=== PATIENT | female | born 1985 | race Caucasian/White ===

== ENCOUNTER 2022-10-23 18:01 | Emergency (ER) | payer MEDICAID, SELFPAY ==
[2022-10-23 18:09] VITALS: BP 118/78; PULSE 110; RESP 20; TEMP 37.2; O2SAT 99
--- NOTE | 2022-10-23 18:15 | DI.RAD_ITS ---
Exam(s) XR SHOULDER LT COMPLETE 2+V EXAM: XR SHOULDER LT COMPLETE 2+V CLINICAL HISTORY: Trauma. TECHNIQUE: 2D digital imaging was performed. Three views. COMPARISON: No exams were available for comparison FINDINGS: BONES: Fracture of the midclavicle with inferior angulation. No additional fractures seen. Scoliosi s noted in the thoracic spine. No bony destructive lesion is seen. JOINTS: No dislocation present. SOFT TISSUE: Normal. No pneumothorax. IMPRESSION: Clavicle fracture. DATA REPOSITORY: RADIATION DOSE DELIVERED:
--- NOTE | 2022-10-23 18:15 | DI.RAD_ITS ---
Exam(s) XR CHEST 2V PA LATERAL EXAM: XR CHEST 2V PA LATERAL CLINICAL HISTORY: Trauma TECHNIQUE: 2D digital imaging was performed. COMPARISON: No exams were available for comparison FINDINGS: HEART: Normal size. Aorta: Not dilated. PULMONARY VASCULATURE: Normal. LUNGS: Clear. PLEURAL SPACE: No pleural effusion or pneumothorax. BONE:Unremarkable for age. IMPRESSION: No acute abnormality. DATA REPOSITORY: RADIATION DOSE DELIVERED:
--- NOTE | 2022-10-23 19:09 | DI.VRAD_ITS ---
PROCEDURE INFORMATION: Exam: XR Left Shoulder Exam date and time: 10/23/2022 6:35 PM Age: 36 years old Clinical indication: Other: Fall, trauma TECHNIQUE: Imaging protocol: Radiologic exam of the left shoulder. Views: 2 or more views. COMPARISON: CR XR CHEST 2V PA LATERAL 10/23/2022 6:33 PM FINDINGS: Bones/joints: Moderately angulated left mid clavicle fracture. No other acute fracture. Acromioclavicular and glenohumeral joints are normally aligned. Soft tissues: Normal. IMPRESSION: Moderately angulated left clavicle fracture Dictated and Authenticated by: Brayan Chang MD. Ordering:CHHAYA Moreland MD
--- NOTE | 2022-10-23 19:09 | DI.VRAD_ITS ---
PROCEDURE INFORMATION: Exam: XR Chest Exam date and time: 10/23/2022 6:33 PM Age: 36 years old Clinical indication: Other: Fall, trauma TECHNIQUE: Imaging protocol: Radiologic exam of the chest. Views: 2 views. COMPARISON: No relevant prior studies available. FINDINGS: Lungs: Unremarkable. No consolidation. Pleural spaces: Unremarkable. No pleural effusion. No pneumothorax. Heart/Mediastinum: Unremarkable. No cardiomegaly. Bones/joints: Partially visualized thoracolumbar scoliosis. Bones are otherwise unremarkable. IMPRESSION: No acute disease Dictated and Authenticated by: Brayan Chang MD. Ordering:CHHAYA Moreland MD
[2022-10-23] MEDS: Ibuprofen 600 MG TAB PO (19:46)
--- NOTE | 2022-10-23 20:36 | W.ED.GENAD ---
Discharge Plan Disposition Patient Disposition: Home Condition: Stable Discharge Details Clinical Impression: Closed fracture of left clavicle, Closed head injury Primary Care Provider: None,None ED Provider: Merly Knowles Home Meds and New Rx's Prescriptions: New cyclobenzaprine 10 mg tablet 10 mg PO TID PRN (Reason: muscle spasm) Qty: 10 0RF Rx Instructions: Take 1 tablet by mouth 3 times daily as needed for muscle spasm. No Action Vyvanse 70 mg Capsule 70 mg PO DAILY buprenorphine-naloxone [Suboxone] 12-3 mg Film 1 film sublingual Discharge Instructions Instructions: Clavicle Fracture (ED), Head Injury (ED) Additional Instructions: Please follow-up with orthopedics in the next couple of weeks. Keep the sling on. Advance activity as tolerated. Take the muscle relaxer as directed. This may cause sleepiness. Please take Tylenol or Ibuprofen with food every 4-6 hours as needed for pain and swelling. Follow up with primary care provider in 3-5 days. Return to ED sooner if any worsening vomiting, headache not relieved by Tylenol or ibuprofen, blood in vomit or stool or concerns. Increase oral fluids. Referrals: Moris Schmitz PA [[facility]] - 2 weeks Nate Cassidy MD [ [facility] STAFF PHYSICIAN] - 2 weeks Medical Decision Making 36-year-old female presents to the ER with chief complaint of left shoulder pain after falling off the back of a truck. She was lifting some kayaks out of the truck and fell backwards hitting the back of her head. No loss of consciousness. She does report she got the wind knocked out of her. She presents alert awake and oriented speaking in full sentences. No difficulty breathing. Vital signs are stable. She does have small deformity to her left clavicle. Distal CMS is intact. No midline C-spine T-spine or L-spine tenderness. She did take Tylenol prior to arrival. She is on Suboxone she does have a history of a tubal ligation. Trauma exam performed no other significant injuries or signs of trauma. X-ray left shoulder and chest x-ray ordered. This showed a left clavicle fracture no acute cardiopulmonary abnormality no pneumothorax no rib fractures. Please see report. Patient was given sling, Flexeril, lidocaine patch and referral for orthopedics for follow-up. Discussed home care she verbalized understanding. This text was generated using [employer] system, please disregard any oddities of phrase or misspellings. Imaging Data Radiologic Study: Imaging: X-Ray Radiologist's impression: CR XR CHEST 2V PA LATERAL 10/23/2022 6:33 PM FINDINGS: Bones/joints: Moderately angulated left mid clavicle fracture. No other acute fracture. Acromioclavicular and glenohumeral joints are normally aligned. Soft tissues: Normal. IMPRESSION: Moderately angulated left clavicle fracture Thank you for allowing us to participate in the care of your patient. Dictated and Authenticated by: Brayan Chang MD Radiologic Study #2: Imaging: X-Ray Radiologist's impression: Views: 2 views. COMPARISON: No relevant prior studies available. FINDINGS: Lungs: Unremarkable. No consolidation. Pleural spaces: Unremarkable. No pleural effusion. No pneumothorax. Heart/Mediastinum: Unremarkable. No cardiomegaly. Bones/joints: Partially visualized thoracolumbar scoliosis. Bones are otherwise unremarkable. IMPRESSION: No acute disease Thank you for allowing us to participate in the care of your patient. Dictated and Authenticated by: Brayan Chang MD [facility] General Mode of arrival: ambulatory. Date/Time Provider Initiated Documentation: 10/23/22 18:19. Limitations to Documentation: no limitations. Information obtained by: patient, RN notes reviewed and old records reviewed. HPI Narrative: 36-year-old female presents to the ER with chief complaint of left shoulder pain after falling off the back of a truck. She was lifting some kayaks out of the truck and fell backwards hitting the back of her head. No loss of consciousness. She does report she got the wind knocked out of her. She presents alert awake and oriented speaking in full sentences. No difficulty breathing. Vital signs are stable. She does have small deformity to her left clavicle. Distal CMS is intact. No midline C-spine T-spine or L-spine tenderness. She did take Tylenol prior to arrival. She is on Suboxone she does have a history of a tubal ligation. Related Data Home Medications Medication Instructions Recorded Confirmed buprenorphine 12 mg-naloxone 3 mg 1 film sublingual 10/23/22 sublingual film (Suboxone) cyclobenzaprine 10 mg tablet 10 mg PO TID PRN muscle spasm #10 10/23/22 tabs lisdexamfetamine 70 mg capsule 70 mg PO DAILY 10/23/22 10/23/22 (Vyvanse) Previous Rx's Medication Instructions Recorded cyclobenzaprine 10 mg tablet 10 mg PO TID PRN muscle spasm #10 10/23/22 tabs Allergies Allergy/AdvReac Type Severity Reaction Status Date / Time No Known Allergies Allergy Unverified 10/23/22 18:57 General Stated Complaint: Orthopedic BILLIE: 3 Review of Systems All systems reviewed & are unremarkable except as noted in HPI and below Musculoskeletal Musculoskeletal: Reports as per HPI, Reports deformity, Reports arthralgias, Reports joint swelling and Reports stiffness Neurologic Neurologic: Reports as per HPI, Denies behavioral changes and Denies confusion Psychiatric Psychiatric: Denies behavioral changes and Denies confusion FORMERLY [facility], [facility]–1983 All Active Problems (Updated 10/23/22 @ 21:02 by Merly Knowles NP) Closed fracture of left clavicle (Acute) Closed head injury (Acute) Surgical History History of tubal ligation Social History Smoking/Tobacco Use Status: Current every day Smoking risk assessment performed?: Yes Alcohol Intake: never Drug use: Current Sobriety Details: on suboxone Housing: house Do you feel safe at home: Yes Do you feel safe in your relationship?: Yes Exam Narrative Exam Narrative: General: Well Developed, Awake and Alert, conversant. Skin: Warm and Dry HEENT: Head: No palpable deformities, Normocephalic Eyes: Pupils PERRLA, EOM's intact. No periorbital eccymosis or step off. No raccoons eyes no lino sign. Ears: Canal patent. Tympanic membranes are clear . No lino's sign, no hemptympanum. She does have a a small laceration to the pinna of her right ear approximately 2 cm in length bleeding is controlled. Nose/Face: Atraumatic. Facial bones nontender to palpation and stable with manipulation. Mouth/Throat: No intraoral trauma. Teeth and mandible are intact. Neck: No midline tenderness, no step off, no deformity to palpation of C-spine. Trachea midline. Chest: No surface trauma. Nontender without crepitus or deformity. Lungs clear to ausculatation bilaterally. Does have a left clavicle deformity and tenderness with palpation. No tenting of the skin. Heart: RRR, no rubs, murmurs or gallop. Abdomen: No abrasions, ecchymosis, or surface trauma. Nondistended. Nontender to palpation no guarding, rebound, or rigidity. Pelvis: Nontender to palpation and stable to compression. Femoral pulses strong and equal Extremities: no surface trauma. Sensation intact. Peripheral pulses intact and equal. Neuro: ANO x4, GCS 15, cranial nerves II through XII intact. Motor and sensory exam nonfocal. Reflexes are symmetric. Course Vital Signs Vital signs: Vital Signs Temperature 37.2 C 10/23/22 18:09 Pulse 110 H 10/23/22 18:09 Respiratory Rate 20 10/23/22 18:09 Blood Pressure 118/78 10/23/22 18:09 Pulse Oximetry 99 10/23/22 18:09 Temperature 37.2 C 10/23/22 18:09 Temperature Source Oral 10/23/22 18:09 Pulse 110 H 10/23/22 18:09 Respiratory Rate 20 10/23/22 18:09 Respiratory Effort Normal, Non-Labored 10/23/22 18:16 Blood Pressure 118/78 10/23/22 18:09 Blood Pressure Position Sitting 10/23/22 18:09 Pulse Oximetry 99 10/23/22 18:09 Oxygen Delivery Method Room Air 10/23/22 18:09 Oxygen Flow Rate 0 10/23/22 18:09
[2022-10-23] MEDS: Cyclobenzaprine 10 MG TAB PO (20:53)
[2022-10-23] MEDS: Lidocaine 5% Patch 1 PATCH TP (20:54)
[2022-10-23] MEDS: Cyclobenzaprine 10 MG TAB, 3 TABS/BTL PO (20:56)
[2022-10-23 21:10] VITALS: BP 129/83; PULSE 85; RESP 19; TEMP 36.5; O2SAT 99
== END 2022-10-23 21:19 | disposition home or self-care (01) ==
PROVIDERS: Emergency Provider Registered Nurse Emergency
DX: S09.90XA Unspecified injury of head, initial encounter (principal); S42.025A Nondisplaced fracture of shaft of left clavicle, initial encounter for closed fracture; W17.89XA Other fall from one level to another, initial encounter; F17.200 Nicotine dependence, unspecified, uncomplicated
CPT/HCPCS: 99283; 71046; 73030

== ENCOUNTER 2022-11-09 09:27 | Outpatient (CLI) | payer MEDICAID, SELFPAY ==
--- NOTE | 2022-11-09 08:45 | DI.RAD_ITS ---
Exam(s) XR CLAVICLE LT EXAM: XR CLAVICLE LT CLINICAL HISTORY: LEFT CLAVICLE F/U. TECHNIQUE: 2D digital imaging was performed. COMPARISON: CR,XR XR SHOULDER LT COMPLETE 2+V from 10/23/2022 FINDINGS: Two views: Previously described slightly angulated midshaft fracture of the left clavicle is again noted, exhibi ting minimal if any significant change from 10/23/2022. There is no distraction of the ipsilateral A C joint. No obvious callus formation at this time IMPRESSION: Midshaft clavicle fracture again noted. DATA REPOSITORY: RADIATION DOSE DELIVERED:
== END 2022-11-09 09:28 | disposition home or self-care (01) ==
LOC: DIORS 09:27
PROVIDERS: Visit Provider Student in an Organized Health Care Education/Training Program
DX: S42.022D Displaced fracture of shaft of left clavicle, subsequent encounter for fracture with routine healing (principal); X58.XXXD Exposure to other specified factors, subsequent encounter
CPT/HCPCS: 73000

== ENCOUNTER 2022-11-30 09:55 | Outpatient (CLI) | payer MEDICAID, SELFPAY ==
--- NOTE | 2022-11-30 09:15 | DI.RAD_ITS ---
Exam(s) XR CLAVICLE LT EXAM: XR CLAVICLE LT INDICATION: F/U FRACTURE. COMPARISON: CR XR CLAVICLE LT from 11/09/2022 TECHNIQUE: 2D digital imaging was performed. Two views. FINDINGS: There has been no change in the alignment of clavicle fracture. There is callus formation around the fracture indicating some interval healing. No new abnormalities. DATA REPOSITORY: RADIATION DOSE DELIVERED:
== END 2022-11-30 09:56 | disposition home or self-care (01) ==
LOC: DIORS 09:55
PROVIDERS: Visit Provider Student in an Organized Health Care Education/Training Program
DX: S42.022D Displaced fracture of shaft of left clavicle, subsequent encounter for fracture with routine healing (principal); X58.XXXD Exposure to other specified factors, subsequent encounter
CPT/HCPCS: 73000

== ENCOUNTER 2024-02-27 08:52 | Emergency (ER) | payer MEDICAID, SELFPAY ==
[2024-02-27 08:55] VITALS: BP 127/91; PULSE 110; RESP 16; TEMP 36.5; O2SAT 98
[2024-02-27 08:57] VITALS: PULSE 103; RESP 18; TEMP 36.6; O2SAT 99
[2024-02-27 09:31] LABS: Bilirubin Negative (Negative); Blood Large (Negative); Clarity Cloudy (Clear); Glucose Negative (Negative); Ketones Negative (Negative); Leukocyte Esterase Moderate (Negative); Nitrite Negative (Negative); Urobilinogen 0.2 mg/dL (Up to 0.2); pH 7.5 (5-8)
[2024-02-27 09:41] LABS: Bacteria Few HPF (Negative); Casts Negative LPF (Negative); Crystals Negative HPF (Negative); Epithelial Cells Few HPF (Negative); Mucus Negative (Negative); RBC >50 HPF (0-2); WBC 20-50 HPF (0-5)
[2024-02-27 09:42] LABS: C & S Indicated? Yes
--- NOTE | 2024-02-27 09:55 | W.ED.GENAD ---
Discharge Plan Disposition Patient Disposition: Home Condition: Stable Discharge Details Clinical Impression: Urinary tract infection Primary Care Provider: Kristine,Local ED Provider: Everardo Morales Home Meds and New Rx's Prescriptions: New cephalexin 500 mg capsule 500 mg PO QID 10 Days Qty: 40 0RF Continued buprenorphine-naloxone [Suboxone] 12-3 mg Film 2 film sublingual DAILY Discharge Instructions Instructions: Cephalexin, Urinary Tract Infection, Adult ED Additional Instructions: You were seen in the emergency department for your urinary tract infection. I have sent the antibiotic cephalexin to [facility] in [place]. Please take this as directed, you can also purchase [id number] AZO to help with symptomatic relief of dysuria, this medication may turn your urine fairly orange-colored. Please take Tylenol and ibuprofen for pain as needed. Please return to the emergency department for worsening despite treatment especially with fever, nausea, weakness, flank pain. HPI General Date/Time Provider Initiated Documentation: 02/27/24 09:06. HPI Narrative: 38 year-old female presents to ED today by POV/ambulating with spouse with a chief complaint of dysuria, central lower abdominal pain, urinary frequency with onset for the pats 2-3 days. Quality described as burning, no radiation to flank pain, difficulty passing urine, fever, nausea, weakness, vaginal bleeding/discharge. Severity is described as 6/10. Palliating factors include cranberry tablets and AZO. Provoking factors include nothing specific. Patient not anticoagulated. Related Data Home Medications ?Medication ?Instructions ?Recorded ?Confirmed buprenorphine 12 mg-naloxone 3 mg 2 film sublingual DAILY 10/23/22 02/27/24 sublingual film (Suboxone) cephalexin 500 mg capsule 500 mg PO QID UTI 10 days #40 caps 02/27/24 Previous Rx's ?Medication ?Instructions ?Recorded cephalexin 500 mg capsule 500 mg PO QID UTI 10 days #40 caps 02/27/24 Allergies Allergy/AdvReac Type Severity Reaction Status Date / Time No Known Allergies Allergy Unverified 02/27/24 08:54 General Stated Complaint: Urinary BILLIE: 3 Review of Systems All systems reviewed & are unremarkable except as noted in HPI and below Exam Narrative Exam Narrative: GENERAL APPEARANCE: Well-nourished, non-toxic, awake and alert, atraumatic, no acute distress. SKIN: Warm, pink, dry, intact, without rashes/lesions/ulcerations. HEAD: Normocephalic, atraumatic, normal hair distribution for gender/age. EYES: Normal conjunctiva, no exudates on lids/lashes. ENT: Nares patent, no circumoral cyanosis, no facial swelling NECK: Supple, trachea midline, painless cervical ROM. LUNGS/CHEST: Non-labored respirations, normal A/P diameter, symmetrical expansion, no chest wall deformity HEART (CV/PV): No peripheral edema, no JVD. ABDOMEN: Soft, non-distended, no guarding, suprapubic tenderness without peritoneal signs, no CVA tenderness to percussion bilaterally. MSK: Normal ROM, no swelling/deformity to bilateral UEs or LEs, moving all extremities without weakness, no cyanosis, spine midline without tenderness, normal curvature. NEURO: Mental Status AAOx4 - alert to person, place, time, events No facial droop, no forehead involvement. Motor: No focal weakness - strength 5/5 in bilateral UEs and LEs, proximal and distal, symmetric. Sensory: sensation intact to light touch globally. Gait normal: patient ambulated without ataxia into ED room. PSYCH: euthymic, cooperative, pleasant, appropriate speech Course Vital Signs Vital signs: Vital Signs Temperature 36.5 C 02/27/24 08:55 Pulse 110 H 02/27/24 08:55 Respiratory Rate 16 02/27/24 08:55 Blood Pressure 127/91 H 02/27/24 08:55 Pulse Oximetry 98 02/27/24 08:55 Temperature 36.6 C 02/27/24 08:57 Temperature Source Temporal Artery Scan 02/27/24 08:57 Pulse 103 H 02/27/24 08:57 Respiratory Rate 18 02/27/24 08:57 Respiratory Effort Normal, Non-Labored 02/27/24 08:57 Blood Pressure 127/91 H 02/27/24 08:55 Blood Pressure Position Sitting 02/27/24 08:55 Pulse Oximetry 99 02/27/24 08:57 Oxygen Delivery Method Room Air 02/27/24 08:57 Oxygen Flow Rate 0 02/27/24 08:55 Pain Level 6 02/27/24 08:57 Lab/Test Results Lab/Test Results: 02/27/24 08:59 Urine - Reflex from Ua Urine Culture - Pending Laboratory Tests Range/Units 02/27/24 08:59 Urine Color (Yellow) Yellow Urine Clarity (Clear) Cloudy Urine pH (5-8) 7.5 Ur Specific [place] (1.005-1.025) 1.020 Urine Protein (Neg-Trace) mg/dL Negative Urine Ketones (Negative) mg/dL Negative Urine Blood (Negative) Large H Urine Nitrite (Negative) Negative Urine Bilirubin (Negative) Negative Urine Urobilinogen (Up to 0.2) mg/dL 0.2 Ur Leukocyte Esterase (Negative) Moderate H Urine RBC (0-2) HPF >50 H Urine WBC (0-5) HPF 20-50 H Ur Epithelial Cells (Negative) HPF Few Urine Crystals (Negative) HPF Negative Urine Bacteria (Negative) HPF Few Urine Casts (Negative) LPF Negative Urine Mucus (Negative) Negative Ur Culture Indicated? Yes Urine Glucose (Negative) mg/dL Negative POC- Test(urine) Negative Medical Decision Making This dictation utilizes [id number] dictation software and may contain unedited grammatical errors. 38 year-old female presents to ED today by POV/ambulating with spouse with a chief complaint of dysuria, central lower abdominal pain, urinary frequency with onset for the pats 2-3 days. Quality described as burning, no radiation to flank pain, difficulty passing urine, fever, nausea, weakness, vaginal bleeding/discharge. Severity is described as 6/10. Palliating factors include cranberry tablets and AZO. Provoking factors include nothing specific. Patients' medical history: Noncontributory. Family and social history: Noncontributory. Pertinent exam findings / vital signs include suprapubic discomfort without peritoneal signs, no CVA tenderness bilaterally to percussion, nontoxic vitals. Differential / pathologies of concern include UTI, pyelonephritis, PID is less likely. Diagnostic studies of: -UA, POC urine . -UA shows UTI, patient is not Interventions of: -Rx for cephalexin. ED Course/Assessment/Plan: 38-year-old female presents with 3 days of burning with urination, UA shows UTI, prescribed cephalexin, counseled on staying hydrated, strict return criteria for any worsening like fever, weakness or nausea, spreading flank pain despite treatment. Findings not consistent with pyelonephritis, sepsis. Disposition of urinary tract infection. Patient verbalized understanding of the plan and return to ED criteria and engaged in shared decision making. Medical Records Medical records reviewed: Yes I reviewed the patient's medical records. Lab Data Lab results reviewed: Yes I reviewed the patient's lab results. Labs: 02/27/24 08:59 Urine - Reflex from Ua Urine Culture - Pending Laboratory Tests Range/Units 02/27/24 08:59 Urine Color (Yellow) Yellow Urine Clarity (Clear) Cloudy Urine pH (5-8) 7.5 Ur Specific [place] (1.005-1.025) 1.020 Urine Protein (Neg-Trace) mg/dL Negative Urine Ketones (Negative) mg/dL Negative Urine Blood (Negative) Large H Urine Nitrite (Negative) Negative Urine Bilirubin (Negative) Negative Urine Urobilinogen (Up to 0.2) mg/dL 0.2 Ur Leukocyte Esterase (Negative) Moderate H Urine RBC (0-2) HPF >50 H Urine WBC (0-5) HPF 20-50 H Ur Epithelial Cells (Negative) HPF Few Urine Crystals (Negative) HPF Negative Urine Bacteria (Negative) HPF Few Urine Casts (Negative) LPF Negative Urine Mucus (Negative) Negative Ur Culture Indicated? Yes Urine Glucose (Negative) mg/dL Negative Quality:SDOH Health Related Social Needs: No Data to Display PFSH All Active Problems (Updated 02/27/24 @ 09:58 by KARLEE Henry) Urinary tract infection (Acute) Surgical History History of tubal ligation Social History Smoking/Tobacco Use Status: Current every day Smoking risk assessment performed?: Yes Alcohol Intake: never Drug use: Current Sobriety Details: on suboxone Housing: house Current gender identity: female Do you feel safe at home: Yes Do you feel safe in your relationship?: Yes
[2024-02-27 10:17] VITALS: BP 120/88; PULSE 98; RESP 16; TEMP 36.2; O2SAT 99
== END 2024-02-27 10:21 | disposition home or self-care (01) ==
PROVIDERS: Emergency Provider Physician Assistant
DX: N39.0 Urinary tract infection, site not specified (principal); F17.200 Nicotine dependence, unspecified, uncomplicated
CPT/HCPCS: 81025; 87077; 99283; 81003; 81015; 87086; 87186